=== PATIENT | female | born 1985 | race Caucasian/White ===

== ENCOUNTER 2018-01-20 01:23 | Inpatient (IN) | payer OTHER ==
[2018-01-20] MEDS: LR 1,000 ML IV (03:08)
[2018-01-20] MEDS: LACTATED RINGER'S 1000 ML IV (03:08)
[2018-01-20] MEDS ORDERED: LR 1,000 ML IV (03:08)
[2018-01-20 03:59] LABS: HEMOGLOBIN 11.5 g/dl (12.0-15.5); MEAN CORPUSCULAR HGB CONC 33.8 g/dl (32.0-36.5); MEAN CORPUSCULAR VOLUME 85.9 fl (80.0-96.0); PLATELET COUNT, AUTOMATED 129 10^3/uL (150-450); RED BLOOD COUNT 3.96 10^6/uL (4.00-5.40); RED CELL DISTRIBUTION WIDTH 12.9 % (11.5-14.5); WHITE BLOOD COUNT 8.9 10^3/uL (4.0-10.0)
[2018-01-20] MEDS: NALBUPHINE HCL 10 MG/ML AMP (J2300) IV (08:52)
[2018-01-20] MEDS: PROMETHAZINE INJ 25 MG/ML VIAL (J2550) IV (08:52)
[2018-01-20] MEDS: NALBUPHINE HCL 10 MG/ML AMP (J2300) IM (08:52)
[2018-01-20 11:19] LABS: ALBUMIN 2.5 GM/DL (3.2-5.2); ALBUMIN/GLOBULIN RATIO 0.63 (1.00-1.93); ALKALINE PHOSPHATASE 124 U/L (45-117); ALT/SGPT 15 U/L (12-78); ANION GAP 10 MEQ/L (8-16); AST/SGOT 17 U/L (7-37); BILIRUBIN,TOTAL 0.3 MG/DL (0.2-1.0); BLOOD UREA NITROGEN 7 MG/DL (7-18); CALCIUM LEVEL 8.2 MG/DL (8.5-10.1); CARBON DIOXIDE LEVEL 23 MEQ/L (21-32); CHLORIDE LEVEL 108 MEQ/L (98-107); CREATININE FOR GFR 0.66 MG/DL (0.55-1.30); GLOMERULAR FILTRATION RATE > 60.0 (>60); GLUCOSE, FASTING 95 MG/DL (70-100); POTASSIUM SERUM 3.7 MEQ/L (3.5-5.1); SODIUM LEVEL 141 MEQ/L (136-145); TOTAL PROTEIN 6.5 GM/DL (6.4-8.2)
[2018-01-20] MEDS ORDERED: FENTANYL 2MCG/ML ROPIVACAINE 0.2% IN 0.9% NACL 200ML IVBAG As Ordered (12:49)
[2018-01-20] MEDS ORDERED: EPIDURAL/PCA KEYS XX (14:00)
[2018-01-20] MEDS ORDERED: REFRIGERATOR IV KEYS XX (14:00)
[2018-01-20] MEDS ORDERED: ePHEDrine SULFATE 25 MG/5 ML(5MG/ML) SYRINGE IV (14:00)
[2018-01-20] MEDS ORDERED: FENTANYL/ROPIVACAINE/NACL BAG 200 ML EPIDURAL (14:00)
[2018-01-20] MEDS ORDERED: LACTATED RINGER'S 1000 ML IV (14:00)
[2018-01-20] MEDS ORDERED: NALOXONE INJ 0.4 MG/1 ML VIAL (J2310) IV (14:00)
[2018-01-20] MEDS ORDERED: ONDANSETRON 4MG/2ML VIAL (J2405) IV (14:00)
[2018-01-20] MEDS ORDERED: diphenhydrAMINE INJ 50MG/ML VIAL (J1200) IV (14:00)
[2018-01-20] MEDS ORDERED: EPIDURAL COMMENT XX (14:00)
[2018-01-21] MEDS: OXYTOCIN DRIP 30 UNITS in APPROPRIATE DILUENT 1 EA IV ×2 (06:18→20:06)
[2018-01-21 06:40] LABS: CORD GAS ABE V -6.2; CORD GAS HCO3 V 18.1 MEQ/L; CORD GAS O2 SAT V 48.2 %; CORD GAS PCO2 V 32.7 mmHg; CORD GAS PO2 V 20.9 mmHg; CORD GAS SBC V 18.3 MEQ/L; CORD GAS TCO2 V 19.1 MEQ/L
[2018-01-21] MEDS: miSOPROStol 200 MCG TAB (S0191) PR (06:41)
[2018-01-21] MEDS: LIDOCAINE 1% MDV 20ML VIAL INFIL (06:41)
[2018-01-21] MEDS ORDERED: MEASLES,MUMPS,RUBELLA VACCINE INJ (MMR-II) (90707) SC (07:00)
[2018-01-21] MEDS ORDERED: DIBUCAINE 1% OINTMENT 30GM TOP (07:00)
[2018-01-21] MEDS ORDERED: RHOGAM 300 MCG (1500 IU) INJ (J2790) IM (07:00)
[2018-01-21] MEDS: IBUPROFEN 800 MG TAB PO ×2 (07:02→21:22)
[2018-01-21] MEDS: PERCOCET 5MG/325MG TAB PO (07:03)
[2018-01-21] MEDS: PRENATAL VITAMINS CHEWABLE TABLET PO (09:00)
[2018-01-21] MEDS: ACETAMINOPHEN 500 MG TAB PO (21:22)
[2018-01-22] MEDS: IBUPROFEN 800 MG TAB PO ×2 (05:49→21:11)
[2018-01-22] MEDS: DOCUSATE SODIUM 100 MG CAP PO (05:50)
[2018-01-22] MEDS: ACETAMINOPHEN 500 MG TAB PO (05:50)
[2018-01-22] MEDS: PRENATAL VITAMINS CHEWABLE TABLET PO (09:55)
[2018-01-23] MEDS: PRENATAL VITAMINS CHEWABLE TABLET PO (07:48)
== END 2018-01-23 10:40 | disposition home or self-care (01) | DRG 775 ==
LOC: M LDO 01:23 → M OBS 01-21 08:53 → M LDI 03:07
PROVIDERS: Obstetrics & Gynecology
PROC: 10E0XZZ Delivery of Products of Conception, External Approach (ICD-10-PCS; principal; 2018-01-21)
PROC: 0HQ9XZZ Repair Perineum Skin, External Approach (ICD-10-PCS; 2018-01-21)
DX: O42.02 Full-term premature rupture of membranes, onset of labor within 24 hours of rupture (principal); Z3A.38 38 weeks gestation of pregnancy; O69.81X0 Labor and delivery complicated by cord around neck, without compression, not applicable or unspecified; O70.0 First degree perineal laceration during delivery; Z37.0 Single live birth

== ENCOUNTER → 2018-05-29 | Outpatient (REF) | payer OTHER ==
[2018-05-29 11:30] LABS: BASO % 0.2 % (0.0-1.0); EOS % 0.4 % (0.0-3.0); HEMATOCRIT 37.6 % (36.0-47.0); HEMOGLOBIN 12.6 g/dl (12.0-15.5); IMMATURE GRANULOCYTE % 0.2 % (0-3.0); LYMPH # 0.6 10^3/uL (1.5-4.5); LYMPH % 11.8 % (24.0-44.0); MEAN CORPUSCULAR HEMOGLOBIN 28.2 pg (27.0-33.0); MEAN CORPUSCULAR HGB CONC 33.5 g/dl (32.0-36.5); MEAN CORPUSCULAR VOLUME 84.1 fl (80.0-96.0); MONO # 0.8 10^3/uL (0.0-0.8); MONO % 14.4 % (0.0-5.0); NEUTROPHILS # 3.9 10^3/uL (1.8-7.7); PLATELET COUNT, AUTOMATED 129 10^3/uL (150-450); RED BLOOD COUNT 4.47 10^6/uL (4.00-5.40); RED CELL DISTRIBUTION WIDTH 11.9 % (11.5-14.5); WHITE BLOOD COUNT 5.3 10^3/uL (4.0-10.0)
[2018-05-29 12:26] LABS: ALBUMIN 3.9 GM/DL (3.2-5.2); ALBUMIN/GLOBULIN RATIO 1.15 (1.00-1.93); ALKALINE PHOSPHATASE 74 U/L (45-117); ALT/SGPT 18 U/L (12-78); ANION GAP 10 MEQ/L (8-16); AST/SGOT 12 U/L (7-37); BILIRUBIN,TOTAL 0.5 MG/DL (0.2-1.0); BLOOD UREA NITROGEN 17 MG/DL (7-18); CALCIUM LEVEL 8.5 MG/DL (8.5-10.1); CARBON DIOXIDE LEVEL 27 MEQ/L (21-32); CHLORIDE LEVEL 103 MEQ/L (98-107); CREATININE FOR GFR 0.94 MG/DL (0.55-1.30); GLOMERULAR FILTRATION RATE > 60.0 (>60); GLUCOSE, FASTING 113 MG/DL (70-100); POTASSIUM SERUM 3.6 MEQ/L (3.5-5.1); SODIUM LEVEL 140 MEQ/L (136-145); TOTAL PROTEIN 7.3 GM/DL (6.4-8.2)
== END ==
LOC: M SFHCLERA 10:27
DX: R55 Syncope and collapse (principal)

== ENCOUNTER 2019-01-01 14:26 | Emergency (ER) | payer OTHER ==
[~2019-01-01] VITALS: Ht 165.1 cm; Wt 72.7 kg
[~2019-01-01 14:26] MED LIST: COLA100C5 PO; IBUP-1114 PO; MAPA500T2 PO; PRENTAB9 PO; VALT500T PO
[2019-01-01] MEDS ORDERED: iron OTC (14:37)
[2019-01-01 15:05] LABS: HEMATOCRIT 35.3 % (36.0-47.0); HEMOGLOBIN 11.8 g/dl (12.0-15.5); MEAN CORPUSCULAR HEMOGLOBIN 28.5 pg (27.0-33.0); MEAN CORPUSCULAR HGB CONC 33.4 g/dl (32.0-36.5); MEAN CORPUSCULAR VOLUME 85.3 fl (80.0-96.0); PLATELET COUNT, AUTOMATED 171 10^3/uL (150-450); RED BLOOD COUNT 4.14 10^6/uL (4.00-5.40); WHITE BLOOD COUNT 4.1 10^3/uL (4.0-10.0)
[2019-01-01 15:24] LABS: HCG, SERUM QUALITATIVE NEGATIVE (NEGATIVE)
[2019-01-01 15:29] LABS: BASOPHILS 1 % (0-4); EOSINOPHILS 1 % (0-5); LYMPHOCYTES 50 % (16-52); MONOCYTES 2 % (0-8); NEUTROPHILS 46 % (35-75)
[2019-01-01 15:30] LABS: PLATELET ESTIMATE NORMAL (NORMAL)
[2019-01-01 15:36] LABS: BLOOD UREA NITROGEN 8 MG/DL (7-18); CREATININE FOR GFR 0.72 MG/DL (0.55-1.30); GLOMERULAR FILTRATION RATE > 60.0 (>60); GLUCOSE, FASTING 122 MG/DL (70-100); SODIUM LEVEL 141 MEQ/L (136-145)
[2019-01-01 15:37] LABS: ALBUMIN 3.6 GM/DL (3.2-5.2); ALT/SGPT 33 U/L (12-78); BILIRUBIN,TOTAL 0.4 MG/DL (0.2-1.0); CALCIUM LEVEL 8.6 MG/DL (8.5-10.1); CARBON DIOXIDE LEVEL 30 MEQ/L (21-32); CHLORIDE LEVEL 107 MEQ/L (98-107); POTASSIUM SERUM 3.5 MEQ/L (3.5-5.1); TOTAL PROTEIN 6.5 GM/DL (6.4-8.2)
[2019-01-01 15:47] LABS: HIVEXPOSED0 NEGATIVE (NEGATIVE)
[2019-01-01 16:48] VITALS: BP 119/66
[2019-01-02 10:37] LABS: HEPATITIS B SURFACE ANTIBODY POSITIVE (POSITIVE); HEPATITIS B SURFACE ANTIGEN NEGATIVE (NEGATIVE); HEPATITIS C VIRUS ABY INDEX < 0.0 INDEX (<0.8)
== END 2019-01-01 16:49 | disposition home or self-care (01) ==
LOC: M ED 14:26
DX: Z77.21 Contact with and (suspected) exposure to potentially hazardous body fluids (principal); W46.0XXA Contact with hypodermic needle, initial encounter; Y92.89 Other specified places as the place of occurrence of the external cause; Y99.0 Civilian activity done for income or pay

== ENCOUNTER 2019-12-27 08:21 | Inpatient (IN) | payer OTHER ==
[2019-12-27] VITALS (27 sets, daily range): BP systolic 109–144; BP diastolic 55–87
[~2019-12-27] VITALS: Ht 165.1 cm; Wt 82.3 kg
[~2019-12-27 08:21] MED LIST changes: +iron OTC
[2019-12-27] MEDS ORDERED: VALT500T PO (08:38)
[2019-12-27] MEDS ORDERED: LACTATED RINGER'S 1000 ML IV STA (08:55)
[2019-12-27] MEDS ORDERED: miSOPROStol 25 MCG 1/4 TAB (S0191) PV ONE (09:00)
--- NOTE | 2019-12-27 09:45 | HPEPDOC ---
Obstetrical History & Physical General Date of Admission Dec 27, 2019 at 08:21 History of Present Illness Nadia is a 23yo at 40+0wks gestation, EDC [id number] (dating by trimel RUST at 7+5 weeks), who presents to LND for Elective IOL admission. She endorses excellent FM, reports some intermittent contractions; she denies LOF/VB. She is accompanied by her spouse and has no concerns today. Nadia's is complicated by early gestational thrombocytopenia that was noted to be resolved [id number]. She has a Hx of HSV and has been on prophylactic Valtrex. Blood Type A Positive; GBS Negative OB History: Uncomplicated at 39wks 01/2018, pelvis tested to 7lbs Chief Complaint: Induction of labor Information Provided By: Patient Age: 34 : 2 Term: 1 Pre-term: 0 Abortions: 0 Livin Care Care: Good Care Number of Visits: 9 Dating Final EDC: Dec 27, 2019 Final EDC for Daily Update: Dec 27, 2019 Final EDC by: 1st trimester (US) Antepartum Course Height (inches): 65 Pre- weight (lbs.): 160 Admission Weight (lbs.): 182 Change in Weight (lbs.): 22 Past Medical History Past Obstetrical History : Past Obstetrical History: [employer] History: Herpes simplex virus(HSV) Past Medical History Surgical History: Appendectomy (2016 - Uncomplicated) Family History Significant Family History: No pertinent family hx Social History Marital Status: Family situation: Spouse/partner home Psychosocial History: No pertinent psych hx * Smoker: non-smoker Alcohol: Denies Drugs: denies Imunizations Tdap status: current Influenza Status: current Allergies Coded Allergies: No Known Allergies (Unverified , 01/20/18) Medications Scheduled No.137/Iron/Folic Acd ( Vitamin Tablet) 1 Tab Tab, 1 TAB PO DAILY Valacyclovir HCl (Valtrex) 500 Mg Tablet, 500 MG PO DAILY Physical Examination Physical Examination GENERAL: Alert and oriented times three. ABDOMEN: Gravid and non-tender to touch. FETUS: Is vertex (VTX) by sterile vaginal examination (SVE). HEART RATE: Regular rate. LUNGS: Observed nonlabored breathing. EXTREMITIES: No edema. SSE: No lesions noted on cervix, in vagina, or external genitalia Vital Signs/I&O O: VSS, afebrile, BP normotensive FHR: 140, moderate variability, + Accels, no decels noted CTX on TOCO: occasional VE: 2/50/-3, moderate, posterior Laboratory Data 24H LABS Laboratory Tests 2 12/27/19 08:48: Serology Scanned Report Hepatitis B Testing Pertinent Laboratoy Data Blood Type: A+ RBC Antibody Screen: Positive HIV: Negative Hepatitis B: Negative Rapid Plasma Reagin: Nonreactive Rubella: Immune Varicella: Immune Chlamydia/Gonorrhea: Negative Group B Streptococcus: Negative Quad Screen Test: Declined Cystic Fibrosis: Negative Anatomy Ultrasound Placenta Location: Posterior Normal Anatomy: Yes Placenta Previa: No Vaginal Examination Presentation: Cephalic presentation Assessment/Plan Assessment Nadia is a 34yo at 40+0wks being admitted for elective Induction of labor; Category I FHT. GBS Negative. Plan P: Admit to LND, consent for Induction, labor, and delivery. PIV start, admission labs drawn PO and IV hydration Start IOL with CRB (60/60) and 25mcg Cytotec PV Plan to repeat Cytotec with 50mcg PO until CRB is out; then start pitocin CEFM x2; Can do intermittent monitoring after 1st hour post cytotec administration with Category I FHT Close maternal/ monitoring Consult with OB if indicated Anticipate LIYAH CLEMENTS CNM Dec 27, 2019 09:12
[2019-12-27 10:01] LABS: BASO % 0.3 % (0.0-1.0); EOS # 0.1 10^3/uL (0.0-0.5); EOS % 0.8 % (0.0-3.0); HEMATOCRIT 34.7 % (36.0-47.0); HEMOGLOBIN 11.2 g/dl (12.0-15.5); LYMPH # 1.6 10^3/uL (1.5-5.0); LYMPH % 22.3 % (24.0-44.0); MEAN CORPUSCULAR HEMOGLOBIN 27.8 pg (27.0-33.0); MEAN CORPUSCULAR HGB CONC 32.3 g/dl (32.0-36.5); MEAN CORPUSCULAR VOLUME 86.1 fl (80.0-96.0); MONO # 0.8 10^3/uL (0.0-0.8); MONO % 11.1 % (0.0-5.0); NEUTROPHILS # 4.6 10^3/uL (1.5-8.5); NEUTROPHILS % 64.8 % (36.0-66.0); PLATELET COUNT, AUTOMATED 138 10^3/uL (150-450); RED BLOOD COUNT 4.03 10^6/uL (4.00-5.40); WHITE BLOOD COUNT 7.1 10^3/uL (4.0-10.0)
[2019-12-27] MEDS ORDERED: BUTORPHANOL 2 MG/ML INJ (J0595) IV ONE (12:45)
[2019-12-27] MEDS ORDERED: PROMETHAZINE INJ 25 MG/ML VIAL (J2550) IV ONE (12:45)
[2019-12-27] MEDS ORDERED: miSOPROStol 50 MCG 1/2 TAB (S0191) PO SCH (14:00)
[2019-12-27] MEDS ORDERED: FENTANYL 2MCG/ML ROPIVACAINE 0.2% IN 0.9% NACL 100ML IVBAG As Ordered ONE (15:18)
[2019-12-27] MEDS ORDERED: ONDANSETRON 4MG/2ML VIAL (J2405 PER 1MG) IV PRN (15:30)
[2019-12-27] MEDS ORDERED: REFRIGERATOR IV KEYS XX PRN (15:30)
[2019-12-27] MEDS ORDERED: NALOXONE INJ 0.4MG/1ML VIAL (J2310 PER 1MG) IV PRN (15:30)
[2019-12-27] MEDS ORDERED: EPIDURAL/PCA KEYS XX PRN (15:30)
[2019-12-27] MEDS ORDERED: EPIDURAL COMMENT XX SCH (15:30)
[2019-12-27] MEDS ORDERED: LACTATED RINGER'S 1000 ML IV PRN (15:30)
[2019-12-27] MEDS ORDERED: FENTANYL/ROPIVACAINE/NACL BAG 100 ML EPIDURAL SCH (15:30)
[2019-12-27] MEDS ORDERED: ePHEDrine SULFATE 25 MG/5 ML(5MG/ML) SYRINGE IV PRN (15:30)
[2019-12-27] MEDS ORDERED: diphenhydrAMINE 50MG/ML VIAL (J1200) IV PRN (15:30)
[2019-12-27] MEDS ORDERED: LR 1,000 ML IV SCH (16:00)
[2019-12-27] MEDS ORDERED: OXYTOCIN 30 UNITS IN 0.9% NaCl 500ML IV BAG (J2590) As Ordered ONE (17:32)
[2019-12-27 18:17] LABS: CORD GAS ABE V -2.8; CORD GAS HCO3 V 23.4 MEQ/L; CORD GAS O2 SAT V 68.7 %; CORD GAS PCO2 V 45.7 mmHg; CORD GAS PH V 7.328 UNITS; CORD GAS PO2 V 29.5 mmHg; CORD GAS SBC V 21.4 MEQ/L; CORD GAS TCO2 V 24.8 MEQ/L
[2019-12-27 18:18] LABS: CORD GAS ABE A -2.3; CORD GAS HCO3 A 27.1 MEQ/L; CORD GAS PH A 7.232 UNITS; CORD GAS SBC A 21.3 MEQ/L; CORD GAS TCO2 A 29.2 MEQ/L
[2019-12-27] MEDS ORDERED: OXYTOCIN DRIP 30 UNITS in IV 1 EA IV SCH (18:37)
[2019-12-27] MEDS ORDERED: DOCUSATE SODIUM 100 MG CAP PO PRN (18:45)
[2019-12-27] MEDS ORDERED: ACETAMINOPHEN TAB 650MG DOSE (2X325MG) PO PRN (18:45)
[2019-12-27] MEDS ORDERED: ANUSOL HC CREAM 30GM TOP PRN (18:45)
[2019-12-27] MEDS ORDERED: MOM 30ML SUSPENSION UDC PO PRN (18:45)
[2019-12-27] MEDS ORDERED: IBUPROFEN 600 MG TAB PO PRN (18:45)
[2019-12-27] MEDS ORDERED: DIBUCAINE 1% OINTMENT 30GM TOP PRN (18:45)
[2019-12-27] MEDS ORDERED: IBUPROFEN 800 MG TAB PO PRN (18:45)
[2019-12-27] MEDS ORDERED: METHYLERGONOVINE MALEATE 0.2 MG TAB PO PRN (18:45)
[2019-12-27] MEDS ORDERED: OXYTOCIN INJ 10 UNITS/ML VIAL (J2590) As Ordered ONE (18:59)
[2019-12-27] MEDS ORDERED: MEASLES,MUMPS,RUBELLA VACCINE INJ (MMR-II) (90707) SC SCH (19:00)
[2019-12-27] MEDS ORDERED: OXYTOCIN INJ 10 UNITS/ML VIAL (J2590) IV ONE (19:00)
[2019-12-27] MEDS ORDERED: RHOGAM 300 MCG (1500 IU) INJ (J2790) IM SCH (19:00)
--- NOTE | 2019-12-27 19:09 | DN ---
DATE: 12/27/2019 This lady is a 34-year-old 2 admitted for induction of labor at 40 weeks of gestation. She had a spontaneous vaginal delivery of a female infant, 7 pounds 9 ounces, 3430 grams. scores of 9 and 9 at one and five minutes respectively. Arterial pH 7.23, base excess -2.3, venous pH 7.32, base excess -2.8. Epidural was in place. She sustained a small first-degree tear on the left side, large varicosity, oversewn with #2-0 Vicryl on a J339. Hemostasis was secured. Anterior, posterior and lateral merlos were complete. Baby voided and had a bowel movement on delivery, clear liquor with a bag of ramos immediately before delivery. The uterus contracted well down under Pitocin. The patient and baby tolerating procedure well.
[2019-12-27] MEDS: ACETAMINOPHEN 500 MG TAB PO PRN (22:23)
[2019-12-28 06:00] VITALS: BP 106/58
[2019-12-28 06:25] LABS: HEMATOCRIT 30.3 % (36.0-47.0); HEMOGLOBIN 9.9 g/dl (12.0-15.5); MEAN CORPUSCULAR HEMOGLOBIN 28.2 pg (27.0-33.0); MEAN CORPUSCULAR HGB CONC 32.7 g/dl (32.0-36.5); MEAN CORPUSCULAR VOLUME 86.3 fl (80.0-96.0); PLATELET COUNT, AUTOMATED 121 10^3/uL (150-450); RED BLOOD COUNT 3.51 10^6/uL (4.00-5.40); WHITE BLOOD COUNT 10.1 10^3/uL (4.0-10.0)
[2019-12-28] MEDS ORDERED: DOCU100C16 PO (07:48)
[2019-12-28] MEDS ORDERED: IBUP80TA PO (07:48)
[2019-12-28] MEDS ORDERED: DIBU10OI TOP (07:48)
[2019-12-28] MEDS ORDERED: PROC1CRE5 TOP (07:48)
[2019-12-28] MEDS ORDERED: PRENATAL VITAMINS CHEWABLE TABLET PO SCH (09:00)
--- NOTE | 2019-12-28 09:01 | DSES ---
DATE OF ADMISSION: 12/27/2019 DATE OF DISCHARGE: 12/28/2019 34-year-old, 2, now para 2, admitted at 40 weeks gestation for induction of labor had a spontaneous vaginal delivery female infant 7 pounds 9 ounces (3430 grams) of 9 and 9 at one and five minutes, respectively. Arterial pH 7.23, base excess -2.3, venous pH 7.32, base excess -2.8. She had an epidural in place but she was given intravenous (IV) medications as well. On her day, we discussed phlebitis, cystitis, mastitis, endometritis, cellulitis, diet, exercise, pain management, her perineal breast and wound care. On discharge, her blood pressure is 106/58, respirations 16, pulse 71, temperature is 98.2. Her admitting hemoglobin was 11.2, hematocrit 34.7, and platelets were 138. Discharge hemoglobin 9.9, hematocrit 30.3, and platelets were 121. Rest of the examination unremarkable. She is normocephalic, atraumatic. Neck full range of motion. Pupils equal and reactive to light. Distal pulses symmetric. No evidence of deep venous thrombosis (DVT), pulmonary embolism (PE) or superficial phlebitis. Chest is clear bilaterally to bases. No wheezes or rhonchi. No costovertebral angle (CVA) tenderness. Abdomen soft. Four quadrant bowel sounds are noted. Uterus two below. Perineum is intact and healing. No rashes, lesions or pruritus. No arthralgia or myalgia. No complaint of joint pain. No complaint of cough, wheezes, shortness breath or dyspnea on exertion. No nausea, vomiting, diarrhea or constipation. Her meds were dispensed at [facility]. She will make a 6 week checkup with [facility]. All questions were answered. 20 minute discussion. Patient discharged improved. edited: 12/30/2019 0732 joycelyn [email or web address]
[2019-12-28] MEDS: ACETAMINOPHEN 500 MG TAB PO PRN (13:07)
== END 2019-12-28 13:20 | disposition home or self-care (01) | DRG 807 ==
LOC: M LDI 08:21 → M OBS 20:32
PROVIDERS: ADMIT Registered Nurse Maternal Newborn; ATTEND Obstetrics & Gynecology
PROC: 10E0XZZ Delivery of Products of Conception, External Approach (ICD-10-PCS; principal; 2019-12-27)
PROC: 0HQ9XZZ Repair Perineum Skin, External Approach (ICD-10-PCS; 2019-12-27)
PROC: 3E0P7GC Introduction of Other Therapeutic Substance into Female Reproductive, Via Natural or Artificial Opening (ICD-10-PCS; 2019-12-27)
DX: O70.0 First degree perineal laceration during delivery (principal); Z37.0 Single live birth; Z3A.40 40 weeks gestation of pregnancy